=== PATIENT | female | born 1935 | race Caucasian/White ===

== ENCOUNTER → 2018-02-28 | Outpatient (CLI) | payer MEDICARE, OTHER ==
--- NOTE | 2018-03-01 08:52 | MAM ---
EXAM DESCRIPTION: 3D Screening BILATERAL : Digital Mammography. CLINICAL HISTORY: 82 years Female SCREEN . No complaints and no personal history of breast cancer. Remote family history of breast cancer. Childbirth. Postmenopausal 37 years. No HRT. Prior cyst aspiration, benign biopsy right breast. Lifetime risk of developing breast cancer (Tyrer-Cuzick model)(%): 2.9. COMPARISON: Baseline study at this facility.. No prior reports available. TECHNIQUE: Bilateral CC and MLO projection full-field images, digital tomosynthesis mammographic technique. Bilateral digital 2-D full-field MLO images. CAD not available for tomosynthesis or 2-D images. FINDINGS: The breast parenchymal density pattern is: Scattered areas of fibroglandular density. No skin thickening or nipple retraction. Bilateral vascular calcifications. Left breast is slightly larger. Focal asymmetry in the retroareolar left breast at the 2:30 clock position, less than 2 cm from the breast. Not associated with microcalcifications. Focal asymmetry at the 1:30 clock position of the left breast posterior third, 6 cm from the nipple. Not associated with microcalcifications. No focal, stellate mass or density, focal asymmetry , and no suspicious microcalcifications right breast. IMPRESSION: BI-RADS CATEGORY: 0 - INCOMPLETE- Need additional imaging evaluation. FOLLOW-UP: Recall for additional imaging: Targeted left breast ultrasound of the regions of interest. Diagnostic digital tomosynthesis of the left breast indicated by the ultrasound images.. Written communication concerning the IMPRESSION and Follow-up, will be mailed to the patient and referring health care provider. Electronically signed by: Valente Hopkins MD 03/01/2018 8:51 AM [facility] [employer]
== END ==
LOC: MAMMO 11:09
PROVIDERS: ATTEND General Practice
DX: Z12.31 Encounter for screening mammogram for malignant neoplasm of breast (principal)

== ENCOUNTER → 2018-03-08 | Outpatient (CLI) | payer MEDICARE, OTHER ==
--- NOTE | 2018-03-08 15:04 | US ---
EXAM DESCRIPTION: Breast,Left: Ultrasound CLINICAL HISTORY: 82 yearsFemaleABNORMAL MAMMOGRAM COMPARISON: Bilateral screening digital breast tomosynthesis 02/28/2018. TECHNIQUE: Transcutaneous scanning of the right breast utilizing graves-scale and Doppler modes. Scanning performed by the soil field technician ; observation by Dr. Hopkins. FINDINGS: Scanning of the posterior third of the right breast abutting the chest wall. Emphasis at the 11:00-1:00 position. Predominantly dense fibroglandular elements. No dominant solid mass or distinct cyst. Minimal ducts are noted in the retroareolar breast. No parenchymal edema or large calcifications. No overlying skin changes. No abnormal vascularity. IMPRESSION: Benign exam. BIRAD CATEGORY: 2 BENIGN FINDINGS. RECOMMENDATIONS: FOLLOW UP: Return to routine digital bilateral mammographic screening, one year interval from February 2018. The FINDINGS and the FOLLOW-UP plan were reviewed in person with the patient after the examination. Written communication explaining the IMPRESSION and FOLLOW-UP will be mailed to the patient and referring care provider. According to the [employer], yearly mammograms are recommended starting at age 40 and continuing as long as a woman is in good health. Any breast change noted on a breast self-exam should be reported promptly to the patient's healthcare provider. Breast MRI is recommended for women with an approximately 20-25% or greater lifetime risk of breast cancer, including women with a strong family history of breast or ovarian cancer and women who have been treated for Hodgkin's disease. A negative mammographic report should not delay tissue diagnosis in patients with significant clinical history or physical findings. Extremely dense breast tissue limits the sensitivity of digital mammography. Electronically signed by: Valente Hopkins MD 03/08/2018 3:03 PM [facility]
== END ==
LOC: MAMMO 10:01
PROVIDERS: ATTEND General Practice
DX: R92.8 Other abnormal and inconclusive findings on diagnostic imaging of breast (principal)